=== PATIENT | male | born 1945 | race Caucasian/White ===

== ENCOUNTER → 2025-04-03 11:14 | Outpatient (REF) | payer OTHER, SELFPAY | LOC: RAD 11:14 | PROVIDERS: ATTENDING PHYSICIAN Student in an Organized Health Care Education/Training Program; FAMILY PHYSICIAN General Practice | DX: I35.0 Nonrheumatic aortic (valve) stenosis (principal) | CPT/HCPCS: 74174; 75572; Q9967 ==

== ENCOUNTER 2025-04-11 10:04 | Day surgery (SDC) | payer OTHER, SELFPAY ==
[2025-04-11] VITALS (9 sets, daily range): BP systolic 131–158; BP diastolic 57–81; BMI 36.8; BMI 33.9
[2025-04-11 11:19] LABS: Glucose - Point of Care 177 mg/dl (70-99)
[2025-04-11 15:01] LABS: ACT-LR - POC 342 Seconds (116-155)
[2025-04-11 15:26] LABS: ACT-LR - POC 348 Seconds (116-155)
[2025-04-11 15:49] LABS: ACT-LR - POC 260 Seconds (116-155)
[2025-04-11 16:14] LABS: ACT-LR - POC 282 Seconds (116-155)
[2025-04-11] MEDS: NSS 1000 IV (16:45)
--- NOTE | 2025-04-11 16:53 | CM ---
spoke to pt in room, he is prev indep, lives with his wifein a 2 story home with 3 steps to enter. he denies any dc planning needs or dme's. plan is for dc to home when medically stable.
[2025-04-11 17:53] LABS: Glucose - Point of Care 154 mg/dl (70-99)
--- NOTE | 2025-04-11 18:40 | PTCARENOTE ---
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 Radial band in place, no sign of bleeding or hematoma, removing air per protocol without problem. Pt c/o chronic low back discomfort, repositioned, he declines any pain
medication. Pt voiding without difficulty. Telemetry shows sinus rhythm with rare PVC.
[2025-04-11] MEDS: NEURONTIN 400 MG PO (21:04)
--- NOTE | 2025-04-11 21:35 | PTCARENOTE ---
Assumed care on pt at 1900, aaox3, at bedside. Pt denies any c/o pain, dizziness or SOB. R radial site clean and intact, R band in place, good radial pulses, Pox 966-98% RA. SR on the monitor, HR 60-70's, BP stable. IVF's infusing through L
hand. Using urinal at bedside, no urinary complaints voiced. Call browne within reach, POC ongoing.
--- NOTE | 2025-04-11 21:35 | ITS.CL.PN ---
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
Procedure
Procedure Note:
CARDIAC CATHETERIZATION REPORT
Date of Procedure: 04/11/2025
Referring: Dr. Hugo vasquez MD
Indication: anginal chest pain, severe two vessel CAD
PROCEDURE(S)
1. coronary angiography
2. PCI with JONAH to LAD
3. IVUS LCx
4. Shockwave lithotripsy LCx
5. PCI with JONAH to LCx
ACCESS: 6F right radial artery (closure: radial band)
CATHETER: 6F EBU 3.75 guide catheter
MODERATE SEDATION: 90 minutes of moderate sedation was utilized. An independent biomedical equipment support specialist was present to assist with and help manage the patient's level of consciousness and physiologic status.
CORONARY ANGIOGRAPHY
Dominance: left
LM: Large vessel with minimal disease
LAD: Large vessel giving rise to a moderate caliber D1 and moderate caliber D2. There is severe disease in the proximal portion of the D1 which is a sub-2 mm vessel. There are tandem 50% and 90% focal lesions in the mid LAD past the D1 in the
presence of heavy calcification.
LCx: Large vessel giving rise to a large OM1, moderate caliber OM2, moderate caliber LPL, and moderate caliber LPDA. There is a focal 90% stenosis in the mid body of the OM1 with a tandem 40% stenosis distally. There is otherwise mild diffuse
disease.
RCA: not imaged as known to be small an non dominant
PCI with JONAH to LAD and LCx
Heparin was given to achieve ACT greater than 300. A Runthrough coronary wire was placed in the distal LAD. Initial lesion preparation was performed with a 2.0 mm semicompliant balloon. Aided by GuideLiner, further lesion preparation was performed
with a 2.25 noncompliant balloon with full expansion noted. Stenting was performed with a 2.25 x 23 mm Xience [place] JONAH postdilated to high-pressure with a 2.25 mm NC balloon. Final angiographic result was excellent. Attention was then turned to
the circumflex. The wire was advanced distally in the large OM1 and initial lesion preparation performed with the 2.25 noncompliant balloon. IVUS was then performed and the IVUS catheter was unable to pass distal to the most severe portion of the
lesion, although imaging demonstrated concentric calcification with a 3.0 mm reference vessel diameter. Thus, further lesion preparation was performed with a 3.0 mm noncompliant balloon which was noted to expand fully. A 3.0 x 22 mm S[place]
drug-eluting stent was delivered and deployed at nominal pressure followed by post dilation with a 3.0 mm NC balloon to high-pressure. There was noted to be focal underexpansion of the stent at the central lesion site. IVUS was performed and
demonstrated focal underexpansion due to calcium. Shockwave lithotripsy was then performed with delivery of 120 pulses to the lesion site followed by post dilation again with a 3.0 mm NC balloon to 20 keyana. There was appreciable improvement in the
degree of underexpansion after these steps, which was deemed adequate angiographically. Final angiography demonstrated otherwise full stent expansion with no edge dissection and no evidence of complication. The wire and guide were removed and a TR
band placed. The patient was loaded with 600 mg of Plavix.
RADIATION: dose 2290 mGy; DAP 171 Gy*cm2; fluoroscopy time 29.7 min
CONCLUSIONS
1. Severe two-vessel coronary artery disease as described in a left dominant system.
2. Successful PCI to the mid LAD with 2.25 x 23 mm Xience Skypoint JONAH postdilated with a 2.25 mm NC balloon
3. Successful IVUS-guided PCI of the OM1 with a 3.0 x 22 mm S[place]q [place] JONAH, treated after stenting with IVL using a 3.0 mm Shockwave lithotripsy balloon (120 pulses delivered), followed by post dilation to high-pressure with a 3.0 mm NC balloon.
RECOMMENDATIONS
1. Aggressive secondary prevention of coronary artery disease
2. DAPT with aspirin and Plavix for at least 6 months
Copy to: Dr. Hugo Vasquez MD (patch machine operator); Dr. Prabhjot English DO (PCP)
Signed: Tony Salmon MD, PhD
--- NOTE | 2025-04-11 22:00 | PTCARENOTE ---
Assumed care of patient around 2130. Pt assessed and vitals obtained, see flowsheets. Radial band removed @ 2200. positive pulses, no bleeding or oozing. 2x2 with tegaderm applied. Call browne within reach. Safety maintained.
[2025-04-11 22:09] LABS: Glucose - Point of Care 168 mg/dl (70-99)
[2025-04-12 02:27] VITALS: BP 131/68
[2025-04-12 02:28] VITALS: BP 131/68
[2025-04-12 03:13] LABS: Hematocrit 35.6 % (39.0-52.0); Hemoglobin 12.4 g/dL (13.0-18.0); Mean Corp Hgb Conc. 34.8 g/dL (33.0-37.0); Mean Corpuscular Hgb 30.7 pg (27.0-31.0); Mean Corpuscular Volume 88.1 fL (80.0-94.0); Platelet Count 159 10^3/uL (130-400); Red Blood Cell Count 4.04 10^6/uL (4.70-6.10); Red Cell Dist. Width 12.9 % (11.5-14.5); White Blood Cell Count 7.7 10^3/uL (4.8-10.8)
[2025-04-12 03:38] LABS: Blood Urea Nitrogen 9 mg/dl (9-20); Calcium 8.9 mg/dl (8.4-10.2); Carbon Dioxide 27 mmol/L (22-30); Chloride 109 mmol/L (98-107); Estimated Creatinine Clearance 108 ml/min; Glucose 158 mg/dl (70-99); HDL Cholesterol 52 mg/dl; LDL Cholesterol, Calculated 18 mg/dl; Potassium 4.1 mmol/L (3.5-5.1); Sodium 142 mmol/L (135-145); Total Cholesterol 93 mg/dl (50-199); Triglyceride 115 mg/dl (10-149); Very Low Density Lipoprotein 23 mg/dl (0-30); eGFR > 60.00
[2025-04-12] MEDS: TYLENOL 650 MG PO (06:12)
[2025-04-12 07:33] VITALS: BP 120/60
[2025-04-12 07:41] LABS: Glucose - Point of Care 156 mg/dl (70-99)
[2025-04-12] MEDS: LOW STRENGTH ASPIRIN 81 MG PO (08:52)
[2025-04-12] MEDS: PLAVIX 75 MG PO (08:52)
[2025-04-12] MEDS: NEURONTIN 400 MG PO (08:52)
[2025-04-12] MEDS: LIPITOR 40 MG PO (08:52)
[2025-04-12] MEDS: COZAAR 50 MG PO (08:52)
--- NOTE | 2025-04-12 08:52 | W.PN.CD ---
Addendum entered and electronically signed by Sid Mesa MD 04/12/25 13:27:
Patient seen and examined in collaboration with MEDICAL BILL PROCESSOR; agree with below.
- Patient underwent successful JONAH to mid LAD and JONAH with shockwave lithotripsy to OM1 yesterday.
- No cardiac complaints this a.m.
- Telemetry stable overnight.
- Continue aspirin/Plavix.
- Stable for discharge home today; outpatient follow-up with his primary Outbound Sales Advisor (Dr. Vasquez).
Original Note:
Today's Communication / Plan
-
d/c home f/u Dr. Vasquez
Impression / Plan
-
CAD:
- Successful PCI to the mid LAD with 2.25 x 23 mm Xience Skypoint JONAH postdilated with a 2.25 mm NC balloon
-Successful IVUS-guided PCI of the OM1 with a 3.0 x 22 mm [employer] JONAH, treated after stenting with IVL using a 3.0 mm Shockwave lithotripsy balloon (120 pulses delivered), followed by post dilation to high-pressure with a 3.0 mm NC balloon.
-asa/plavix
-LDL 18
: con't OP work up.
DM: con't meds, metformin to start Monday.
HTN: stable on meds.
d/c home
Physical Exam
Vital Signs/Labs
Vital Signs
Temp Pulse Resp BP Pulse Ox
98.2 F 64 16 131/68 97
04/12/25 07:27 04/12/25 07:27 04/12/25 07:27 04/12/25 02:28 04/12/25 07:27
04/11/25 04/12/25 04/13/25
06:59 06:59 06:59
Actual Weight 96.615 kg
04/12/25 02:38
04/12/25 02:38
Triglycerides 115 mg/dl (10-149) 06/07/25 02:38
LDL Cholesterol, Calc 18 mg/dl 04/12/25 02:38
VLDL Cholesterol, Calc 23 mg/dl (0-30) 04/12/25 02:38
HDL Cholesterol 52 mg/dl 04/12/25 02:38
Physical Exam
Cardiovascular: Rhythm & rate is regular, Pedal edema is absent and S1S2 is normal
Respiratory: Respiratory effort normal
Neuro/Psych: AO x 3
Other: Cath Site (R radial no hematoma, there is a palpable R radial pulse. )
Data Reviewed
-
Date of Service: April 12, 2025
EKG: Tracing Personally Visualized and interpreted (NSR 1 st degree AVB, LAFB) and Other (Tele: NSR)
Labs: Labs Reviewed by me
[2025-04-12 08:54] VITALS: BP 130/61
[2025-04-12 10:12] LABS: Glycohemoglobin (HgbA1c) 7.5 % (4.0-5.6)
--- NOTE | 2025-04-12 10:23 | W.DS.TRANS ---
Addendum entered and electronically signed by Sid Mesa MD 04/12/25 13:25:
Agree with below.
Original Note:
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
-
Discharge Instructions:
Discharge Diagnosis/Procedures Angioplasty with stent to LAD, Lithotripsy and
angioplasty to Obtuse marginal artery
Diet Low Cholesterol,Diabetic, Carb Controlled
Driving Restrictions No driving for 24 hours
Other Services Cardiac Rehab
Instructions:
Stand-Alone Forms: DC Instructions- Cath/EP Lab
Changes to Home Medications: Yes
Discharge Medications:
DC Medications w/original date entered in [employer]
aspirin 81 mg chewable tablet 81 mg PO DAILY 04/11/25
atorvastatin 40 mg tablet 40 mg PO DAILY #30 tabs 04/11/25
clopidogrel 75 mg tablet 75 mg PO DAILY #90 tabs 04/11/25
gabapentin 400 mg tablet 400 mg PO BID 04/11/25
losartan 50 mg tablet 50 mg PO DAILY 04/11/25
metformin 1,000 mg tablet 1,000 mg PO BID 04/11/25
Held on 04/11/25. Instructions: Resume on 04/13/25. Evening
nitroglycerin 0.4 mg sublingual tablet 0.4 mg sublingual [id number] PRN chest pain #25 tabs 04/11/25
tirzepatide 5 mg/0.5 mL subcutaneous pen injector (Mounjaro) 5 mg SC QWEEK 04/11/25
Home Medication Changes
atorvastatin 40 mg tablet 40 mg PO DAILY #30 tabs 04/11/25
clopidogrel 75 mg tablet 75 mg PO DAILY #90 tabs 04/11/25
metformin 1,000 mg tablet 1,000 mg PO BID 04/11/25
Held on 04/11/25. Instructions: Resume on 04/13/25. Evening
nitroglycerin 0.4 mg sublingual tablet 0.4 mg sublingual [id number] PRN chest pain #25 tabs 04/11/25
Pending Results: No
[2025-04-12 11:02] LABS: Magnesium 1.9 mg/dl (1.6-2.3)
[2025-04-12 11:09] VITALS: BP 133/64
--- NOTE | 2025-04-12 12:15 | PTCARENOTE ---
Received discharge order by CORPORATE PHYSICAL SECURITY SUPERVISOR/Md. Discussed discharge instructions, post-cath instructions, medications, f/u appointments and cardiac rehab. Answered questions from patient and , support given. IV and Temp pack removed. Pt wheeled out to car by
RN.
[2025-04-14 18:56] LABS: Hepatitis C Antibody Negative (Negative)
== END 2025-04-12 12:16 | disposition home or self-care (01) ==
LOC: CATH 10:04
PROVIDERS: Nurse Practitioner Adult Health; ATTENDING PHYSICIAN Student in an Organized Health Care Education/Training Program; FAMILY PHYSICIAN General Practice; OTHER PHYSICIAN Internal Medicine Cardiovascular Disease
DX: I25.119 Atherosclerotic heart disease of native coronary artery with unspecified angina pectoris (principal); E11.41 Type 2 diabetes mellitus with diabetic mononeuropathy; E66.9 Obesity, unspecified; E78.5 Hyperlipidemia, unspecified; G56.00 Carpal tunnel syndrome, unspecified upper limb; I10 Essential (primary) hypertension; I44.4 Left anterior fascicular block; I35.0 Nonrheumatic aortic (valve) stenosis; I49.1 Atrial premature depolarization; J98.4 Other disorders of lung; Z79.02 Long term (current) use of antithrombotics/antiplatelets; Z79.82 Long term (current) use of aspirin; Z79.899 Other long term (current) drug therapy; Z95.5 Presence of coronary angioplasty implant and graft
CPT/HCPCS: 92972; 92978; 99152; 99153; 80048; 80061; 82962; 83036; 83735; 85027; 85347; 86803; 93005; C1725; C1753; C1761; C1769; C1874; C1894; C9600; Q9967